=== PATIENT | male | born 1955 | race Caucasian/White ===

== ENCOUNTER 2016-07-22 16:02 | Emergency (ER) | payer OTHER ==
--- NOTE | 2016-07-22 18:00 | DIAGNOSTIC IMAGING REPORT ---
PROCEDURE: CT ABD/PELVIS WITH CONTRAST CLINICAL INDICATION: Left lower quadrant pain, Marisela see 12.7. Initial encounter. TECHNIQUE: 125 ml of Isovue 300 were injected intravenously and axial images were obtained of the entire abdomen and pelvis with sagittal and coronal reformations. COMPARISON: CT chest 01/10/2015. FINDINGS: ABDOMEN: Lung base are clear. Heart size is normal. There are several hepatic hypoenhancing lesions measuring 5 mm or less which are stable and probably benign. Gallbladder, pancreas, spleen, adrenal glands and right kidney are normal. Small left renal cyst. Mild atherosclerosis of the aorta. Scattered diverticula of the ascending, transverse and descending colon. Moderate hiatal hernia. PELVIS: Mild proximal sigmoid colon diverticulosis with 7.5 cm long segment demonstrating wall thickening and mild inflammatory changes. No abscess or free air. Normal appendix. Enlarged prostate (5.8 cm). Markedly distended bladder. Small right bladder diverticulum. Bones are unremarkable. IMPRESSION: 1. Proximal sigmoid colon diverticula was wall thickening and mild adjacent inflammatory changes consistent with diverticulitis. Neoplastic changes are less likely. Recommend follow-up. 2. Enlarged prostate with markedly distended bladder 3. Moderate hiatal hernia 4. Results discussed with Avril Fay All CT scans at this facility use dose modulation, iterative reconstruction, and/or weight-based dosing when appropriate to reduce radiation dose to as low as reasonably achievable.
--- NOTE | 2016-07-22 18:03 | ED CLINICAL REPORT ---
Clinical Report - Physicians/Mid Levels [facility] [address] [place] [address] 07/22/2016 16:02 Patient: MOMO YATES Time Seen: 16:18; initial patient contact, initial documentation, patient care assumed. Arrived- By private vehicle. Historian- patient. HISTORY OF PRESENT ILLNESS Chief Complaint: ABDOMINAL PAIN. This started about 1 weeks ago and is still present. It was abrupt in onset and has been intermittent. At its maximum, severity described as severe. When seen in the E.D., it was almost gone. Modifying factors. Not worsened by anything. Not relieved by anything. It is described as "pain" and it is described as located in the left lower quadrant. No nausea or loss of appetite. He has had vomiting (none today). He has had loose stools (x3 episodes today). No recent travel. Similar symptoms previously: None. Recent medical care: Not recently seen/assessed. REVIEW OF SYSTEMS No constipation, black stools, hematemesis, difficulty with urination or pain with urination. No urinary frequency, bloody stools, fever, chest pain or difficulty breathing. All systems otherwise negative, except as recorded above. PAST HISTORY See nurses notes. PROBLEMS: Urinary Retention. Hypertension. Immunizations. Hypospadias. --16:10 Ruchi Goodwin R.N. ADDITIONAL SURGERIES: For 2 blockages in urinary tract. --16:10 Ruchi Goodwin RJasmin. SOCIAL HISTORY Heavy tobacco smoker. Heavy alcohol use. No drug use. No recent travel. Is a local resident. FAMILY HISTORY Negative. ADDITIONAL NOTES The nursing notes have been reviewed with agreement regarding the chief complaint, HPI, ROS, PMH and patient medications and allergies. PHYSICAL EXAM Vital Signs: 07/22/2016 16:06 BP: 153/88. HR: 74. RR: 20. O2 saturation: 98%. Temp: 98.6 F. Pain level now: 7/10. Have been reviewed as normal and appear to be correct. Appearance: Alert. Oriented X3. No acute distress. Eyes: Pupils equal, round and reactive to light. Eyes normal inspection. Neck: Normal inspection. Neck supple. CVS: Normal heart rate and rhythm. Heart sounds normal. Pulses normal. Respiratory: No respiratory distress. Breath sounds normal. Chest nontender. Abdomen: Soft and nontender. Bowel sounds normal. No organomegaly. No mass. Mildly obese. Back: Normal inspection. Skin: Skin warm and dry. Normal skin color. No rash. Normal skin turgor. Extremities: Extremities exhibit normal ROM. No lower extremity edema. Neuro: Oriented X 3. No motor deficit. No sensory deficit. LABS, X-RAYS, AND EKG Abdominal CT: . IMPRESSION: 1. Proximal sigmoid colon diverticula was wall thickening and mild adjacent inflammatory changes consistent with diverticulitis. Neoplastic changes are less likely. Recommend follow-up. 2. Enlarged prostate with markedly distended bladder 3. Moderate hiatal hernia 4. Results discussed with Avril Fay All CT scans at this facility use dose modulation, iterative reconstruction, and/or weight-based dosing when appropriate to reduce radiation dose to as low as reasonably achievable. Electronically Final signed by:Adria Resendez MD 07/22/2016 5:59:53 PM. The study was interpreted by the radiologist and discussed with the radiologist. Interpretation time: 17:40. Laboratory Tests: CBC w Diff: (RENEE: 07/22/2016 16:14) ( MsgRcvd 07/22/2016 16:37) Final results Test Result Flag Units (Reference) WHITE BLOOD COUNT 12.7 H K/uL (4.5-11.5) RED BLOOD COUNT 5.26 M/uL (4.50-5.90) HEMOGLOBIN 16.2 gm/dL (13.5-17.5) HEMATOCRIT 47.5 % (41.0-53.0) MEAN CELL VOLUME 90 fL (80-100) MEAN CORPUSCULAR HGB 31 pg (26-34) MEAN CORPUSCULAR HGB CONC 34 g/dL (31-37) RED CELL DISTRIBUTION WIDTH 13.1 % (11.6-14.8) PLATELET COUNT 225 K/uL (150-400) NEUTROPHIL % 80.2 H % (50-75) LYMPH % 13.8 L % (25-40) MONO % 5.0 % (3-14) EOSINOPHIL % 0.7 % (0-4) BASOPHIL % 0.3 % (0-2) Ethyl Alcohol: (RENEE: 07/22/2016 16:14) ( [facility] 07/22/2016 17:06) Final results Test Result Flag Units (Reference) ETHYL ALCOHOL <3 L mg/dL (3-10) CMP: (RENEE: 07/22/2016 16:14) ( [facility] 07/22/2016 16:43) Final results Test Result Flag Units (Reference) GLUCOSE 99 mg/dL (70-110) BUN 9 mg/dL (7-18) CREATININE 1.0 mg/dL (0.6-1.3) Estimated GFR >60 mL/min Estimated GFR- >60 mL/min Note: Persistent reduction over 3 months in eGFR<60 mL/min/1.73 m2 defines CKD. Patients with eGFR values>=60 mL/min/1.73 m2 may also have CKD if evidence ofpersistent proteinuria. Additional information may be foundat www.kidney.org. SODIUM 137 mmol/L (136-145) POTASSIUM 4.0 mmol/L (3.5-5.1) CHLORIDE 101 mmol/L (98-107) CARBON DIOXIDE 27 mmol/L (21-32) CALCIUM 9.0 mg/dL (8.5-10.1) TOTAL PROTEIN 7.9 g/dL (6.4-8.2) ALBUMIN 3.8 g/dL (3.3-5.0) BILIRUBIN, TOTAL 0.7 mg/dL (0.0-1.0) ALKALINE PHOSPHATASE 69 U/L (46-116) AST (SGOT) 22 U/L (15-37) ALT (SGPT) 25 U/L (12-78) LIPASE 156 U/L (73-393) AMYLASE 47 U/L (25-115) . PROGRESS AND PROCEDURES Patient counseled in person regarding the patient's stable condition, test results and diagnosis. 18:01. Differential Diagnosis: I considered gastritis, gastroenteritis, peptic ulcer disease, gastroesophageal reflux disease, mesenteric lymphadenitis, diverticulitis, colon cancer, ulcerative colitis, Crohn's disease, intussusception, small bowel obstruction, adhesions, bowel ischemia, functional bowel problems, obstipation, hepatitis, pancreatitis and viral syndrome as a possible cause of abdominal pain in this patient. This is a partial list of diagnoses considered. Above considerations are based on history, physical exam, reassessment, laboratory data and other information. Differential diagnosis was discussed with patient. Disposition: Discharged home in good and improved condition (18:03). Condition: good and stable. CLINICAL IMPRESSION Acute diverticulitis of the colon. No perforation, bleeding, abscess, peritonitis or obstruction. Acute left lower quadrant abdominal pain. INSTRUCTIONS Warnings: Further evaluation is necessary in order to conduct further tests and assess the possibility of serious illness. It is very important to follow up with a physician. GENERAL WARNINGS: Return or contact your physician immediately if your condition worsens or changes unexpectedly, if not improving as expected, or if other problems arise. SPECIFICALLY, return if you develop pain in the abdomen or pelvis, fever, the inability to keep fluids down, blood in vomitus, blood in diarrhea, fainting or lightheadedness. Prescription Medications: Zofran 4 mg: Take 1 orally every six hours as needed for nausea/vomiting. Dispense ten (10). No refills. Substitution is permissible. Flagyl 500 mg: Take 1 tablet orally every 12 hours for 7 days. No refill. Substitution is permissible. Ultram 50 mg tablets: take 1-2 orally every 6 hours as needed for pain. Dispense twenty (20). No refills. Substitution is permissible. Prednisone 20 mg: take 3 orally every day for 5 days. Dispense fifteen (15). No refills. Follow-up: Follow up with your doctor in about two days even if well. Call for an appointment. Summary of care provided to patient. Understanding of the discharge instructions verbalized by patient. Follow-up with: Momo Louis MD, Family Practice, , [facility], [address] [place] [address] Follow up in about two days as needed. Call for an appointment. Summary of care provided to patient. (Electronically signed by Avril Fay A.R.N.P. 07/22/2016 20:42)
--- NOTE | 2016-07-22 18:03 | ED ORDER SUMMARY ---
..... Patient: RADHA YATES OrderSheet [facility] VisitID: [id number] [place] [address] 61y, M Registration Date/Time: 07/22/2016 ORDER SHEET Weight: 81.6 kg (stated) Allergies: No Known Drug Allergy GENERAL ORDERS: CT Abd/Pel w Cont (No) (pending) Urgent (16:07/22/2016 HBivens A.R.N.P.) (Ack 16:28 KHoerner) ([facility] CBC w Diff Urgent (16:07/22/2016 HBivens A.R.N.P.) (Ack 16:28 KHoerner) (16:34 MWinterer R.N.) CMP Urgent (16:07/22/2016 HBivens A.R.N.P.) (Ack 16:28 KHoerner) (16:34 MWinterer R.N.) UA-Culture if indicated Urgent (16:07/22/2016 HBivens A.R.N.P.) (Ack 16:28 KHoerner) (18:12 MWinterer R.N.) Amylase Urgent (16:07/22/2016 HBivens A.R.N.P.) (Ack 16:28 KHoerner) (16:34 MWinterer R.N.) Lipase Urgent (16:07/22/2016 HBivens A.R.N.P.) (Ack 16:28 KHoerner) (16:34 MWinterer R.N.) Ethyl Alcohol Urgent (16:07/22/2016 HBivens A.R.N.P.) (Ack 16:28 KHoerner) (16:34 MWinterer R.N.) MEDICATION ORDERS: IV FLUIDS: IV NS : initial bolus 1000 mL (1000 mL/hr), then none - (NOW) (16:23 07/22/2016 HBivens A.R.N.P.) (Ack 16:25 MWinterer R.N.) (16:34 MWinterer R.N.) Toradol IV 30 mg (NOW) (16:23 07/22/2016 HBivens A.R.N.P.) (Ack 16:25 MWinterer R.N.) (16:35 MWinterer R.N.) Flagyl IV 500 mg/100mL (NOW) (18:03 07/22/2016 HBivens A.R.N.P.) (Ack 18:13 MWinterer R.N.) (18:29 MWinterer R.N.) Decadron IV 8 mg (NOW) (18:03 07/22/2016 HBivens A.R.N.P.) (Ack 18:13 MWinterer R.N.) (18:29 MWinterer R.N.) ORDER SHEET NOTES: [Electronically signed by Ruchi Goodwin R.N. (19:32 07/22/2016)] [Electronically signed by Avril FayR.N.PHollis (20:42 07/22/2016)] [Electronically locked/signed by Ruchi Goodwin R.N. (19:32 07/22/2016)]
--- NOTE | 2016-07-22 18:03 | ED CLINICAL REPORT ---
Clinical Report - Physicians/Mid Levels [facility] [address] [place] [place] [address] 07/22/2016 16:02 Patient: MOMO YATES Time Seen: 16:18; initial patient contact, initial documentation, patient care assumed. Arrived- By private vehicle. Historian- patient. HISTORY OF PRESENT ILLNESS Chief Complaint: ABDOMINAL PAIN. This started about 1 weeks ago and is still present. It was abrupt in onset and has been intermittent. At its maximum, severity described as severe. When seen in the E.D., it was almost gone. Modifying factors. Not worsened by anything. Not relieved by anything. It is described as "pain" and it is described as located in the left lower quadrant. No nausea or loss of appetite. He has had vomiting (none today). He has had loose stools (x3 episodes today). No recent travel. Similar symptoms previously: None. Recent medical care: Not recently seen/assessed. REVIEW OF SYSTEMS No constipation, black stools, hematemesis, difficulty with urination or pain with urination. No urinary frequency, bloody stools, fever, chest pain or difficulty breathing. All systems otherwise negative, except as recorded above. PAST HISTORY See nurses notes. PROBLEMS: Urinary Retention. Hypertension. Immunizations. Hypospadias. --16:10 Ruchi Goodwin R.N. ADDITIONAL SURGERIES: For 2 blockages in urinary tract. --16:10 Ruchi Goodwin RJasmin. SOCIAL HISTORY Heavy tobacco smoker. Heavy alcohol use. No drug use. No recent travel. Is a local resident. FAMILY HISTORY Negative. ADDITIONAL NOTES The nursing notes have been reviewed with agreement regarding the chief complaint, HPI, ROS, PMH and patient medications and allergies. PHYSICAL EXAM Vital Signs: 07/22/2016 16:06 BP: 153/88. HR: 74. RR: 20. O2 saturation: 98%. Temp: 98.6 F. Pain level now: 7/10. Have been reviewed as normal and appear to be correct. Appearance: Alert. Oriented X3. No acute distress. Eyes: Pupils equal, round and reactive to light. Eyes normal inspection. Neck: Normal inspection. Neck supple. CVS: Normal heart rate and rhythm. Heart sounds normal. Pulses normal. Respiratory: No respiratory distress. Breath sounds normal. Chest nontender. Abdomen: Soft and nontender. Bowel sounds normal. No organomegaly. No mass. Mildly obese. Back: Normal inspection. Skin: Skin warm and dry. Normal skin color. No rash. Normal skin turgor. Extremities: Extremities exhibit normal ROM. No lower extremity edema. Neuro: Oriented X 3. No motor deficit. No sensory deficit. LABS, X-RAYS, AND EKG Abdominal CT: . IMPRESSION: 1. Proximal sigmoid colon diverticula was wall thickening and mild adjacent inflammatory changes consistent with diverticulitis. Neoplastic changes are less likely. Recommend follow-up. 2. Enlarged prostate with markedly distended bladder 3. Moderate hiatal hernia 4. Results discussed with Avril Fay All CT scans at this facility use dose modulation, iterative reconstruction, and/or weight-based dosing when appropriate to reduce radiation dose to as low as reasonably achievable. Electronically Final signed by:Adria Resendez MD 07/22/2016 5:59:53 PM. The study was interpreted by the radiologist and discussed with the radiologist. Interpretation time: 17:40. Laboratory Tests: CBC w Diff: (RENEE: 07/22/2016 16:14) ( MsgRcvd 07/22/2016 16:37) Final results Test Result Flag Units (Reference) WHITE BLOOD COUNT 12.7 H K/uL (4.5-11.5) RED BLOOD COUNT 5.26 M/uL (4.50-5.90) HEMOGLOBIN 16.2 gm/dL (13.5-17.5) HEMATOCRIT 47.5 % (41.0-53.0) MEAN CELL VOLUME 90 fL (80-100) MEAN CORPUSCULAR HGB 31 pg (26-34) MEAN CORPUSCULAR HGB CONC 34 g/dL (31-37) RED CELL DISTRIBUTION WIDTH 13.1 % (11.6-14.8) PLATELET COUNT 225 K/uL (150-400) NEUTROPHIL % 80.2 H % (50-75) LYMPH % 13.8 L % (25-40) MONO % 5.0 % (3-14) EOSINOPHIL % 0.7 % (0-4) BASOPHIL % 0.3 % (0-2) Ethyl Alcohol: (RENEE: 07/22/2016 16:14) ( [facility] 07/22/2016 17:06) Final results Test Result Flag Units (Reference) ETHYL ALCOHOL <3 L mg/dL (3-10) CMP: (RENEE: 07/22/2016 16:14) ( [facility] 07/22/2016 16:43) Final results Test Result Flag Units (Reference) GLUCOSE 99 mg/dL (70-110) BUN 9 mg/dL (7-18) CREATININE 1.0 mg/dL (0.6-1.3) Estimated GFR >60 mL/min Estimated GFR- >60 mL/min Note: Persistent reduction over 3 months in eGFR<60 mL/min/1.73 m2 defines CKD. Patients with eGFR values>=60 mL/min/1.73 m2 may also have CKD if evidence ofpersistent proteinuria. Additional information may be foundat www.kidney.org. SODIUM 137 mmol/L (136-145) POTASSIUM 4.0 mmol/L (3.5-5.1) CHLORIDE 101 mmol/L (98-107) CARBON DIOXIDE 27 mmol/L (21-32) CALCIUM 9.0 mg/dL (8.5-10.1) TOTAL PROTEIN 7.9 g/dL (6.4-8.2) ALBUMIN 3.8 g/dL (3.3-5.0) BILIRUBIN, TOTAL 0.7 mg/dL (0.0-1.0) ALKALINE PHOSPHATASE 69 U/L (46-116) AST (SGOT) 22 U/L (15-37) ALT (SGPT) 25 U/L (12-78) LIPASE 156 U/L (73-393) AMYLASE 47 U/L (25-115) . PROGRESS AND PROCEDURES Patient counseled in person regarding the patient's stable condition, test results and diagnosis. 18:01. Differential Diagnosis: I considered gastritis, gastroenteritis, peptic ulcer disease, gastroesophageal reflux disease, mesenteric lymphadenitis, diverticulitis, colon cancer, ulcerative colitis, Crohn's disease, intussusception, small bowel obstruction, adhesions, bowel ischemia, functional bowel problems, obstipation, hepatitis, pancreatitis and viral syndrome as a possible cause of abdominal pain in this patient. This is a partial list of diagnoses considered. Above considerations are based on history, physical exam, reassessment, laboratory data and other information. Differential diagnosis was discussed with patient. Disposition: Discharged home in good and improved condition (18:03). Condition: good and stable. CLINICAL IMPRESSION Acute diverticulitis of the colon. No perforation, bleeding, abscess, peritonitis or obstruction. Acute left lower quadrant abdominal pain. INSTRUCTIONS Warnings: Further evaluation is necessary in order to conduct further tests and assess the possibility of serious illness. It is very important to follow up with a physician. GENERAL WARNINGS: Return or contact your physician immediately if your condition worsens or changes unexpectedly, if not improving as expected, or if other problems arise. SPECIFICALLY, return if you develop pain in the abdomen or pelvis, fever, the inability to keep fluids down, blood in vomitus, blood in diarrhea, fainting or lightheadedness. Prescription Medications: Zofran 4 mg: Take 1 orally every six hours as needed for nausea/vomiting. Dispense ten (10). No refills. Substitution is permissible. Flagyl 500 mg: Take 1 tablet orally every 12 hours for 7 days. No refill. Substitution is permissible. Ultram 50 mg tablets: take 1-2 orally every 6 hours as needed for pain. Dispense twenty (20). No refills. Substitution is permissible. Prednisone 20 mg: take 3 orally every day for 5 days. Dispense fifteen (15). No refills. Follow-up: Follow up with your doctor in about two days even if well. Call for an appointment. Summary of care provided to patient. Understanding of the discharge instructions verbalized by patient. Follow-up with: Momo Louis MD, Family Practice, , [facility], [address] [place] [address] Follow up in about two days as needed. Call for an appointment. Summary of care provided to patient. (Electronically signed by Avril Fay A.R.N.P. 07/22/2016 20:42)
--- NOTE | 2016-07-22 18:03 | ED NURSING NOTES ---
Clinical Report - Nurses [facility] [place] [address] 07/22/2016 16:02 Patient: RADHA YATES TRIAGE Acuity: LEVEL 3. Chief Complaint: ABDOMINAL PAIN, VOMITING and DIARRHEA. Alert. No acute distress. SEPSIS SCREEN: Sepsis Screen. Negative (no infection suspected/documented). --16:12 Ruchi Goodwin R.N. 16:06 07/22/16. BP: 153/88. HR: 74. RR: 20. O2 saturation: 98% on room air. Temp: 98.6 F (oral). Pain level now: 7/10. --16:12 Ruchi Goodwin R.N. Weight: 81.6 kg stated. Height/Length: 71 inches Per Patient. BMI: 25.1. --16:11 Ruchi Goodwin R.N. Medications Lisinopril Oral. --16:09 Ruchi Goodwin R.N. Another bp med. --16:10 Ruchi Goodwin R.N. Medication/allergy information source: the patient. --16:12 Ruchi Goodwin R.N. Allergies No Known Drug Allergy. --16:09 Ruchi Goodwin R.N. History Arrived by private vehicle. Historian: patient. Accompanied by (dropped off). Primary physician (none). Onset. (1 weeks ago). Describes the quality as "pain" and sharp. Relates location as in the left lower quadrant. Notes pain level as 7/10 on arrival. He has had diarrhea. Reports last BM was yesterday. Last oral intake by patient was 3 hours ago. 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 SOCIAL HX: Current every day heavy tobacco smoker (cigarette)- 1 pack per day. Heavy alcohol use. No drug use. No recent travel. FALL RISK ASSESSMENT: Fall risk assessment completed. No fall risk identified. NUTRITIONAL RISK ASSESSMENT: The nutritional risk assessment revealed no deficiencies. FUNCTIONAL ASSESSMENT: Functional assessment: no impairments noted. LEARNING NEEDS ASSESSMENT: The learning needs assessment revealed no barriers. SKIN INTEGRITY ASSESSMENT: Skin integrity risk assessment completed. No skin integrity risk identified. --16:12 Ruchi Goodwin R.N. PROBLEMS: Urinary Retention. Hypertension. Immunizations. Hypospadias. --16:10 Ruchi Goodwin R.N. ADDITIONAL SURGERIES: For 2 blockages in urinary tract. --16:10 Ruchi Goodwin R.N. Assessment GENERAL / NEURO / PSYCH: Alert. Oriented X 4. Appears in no acute distress. [place] Coma Scale: 15- eyes open spontaneously (4); best verbal response- oriented x 4 (5); best motor response- obeys commands (6). Patient appears calm and cooperative. RESPIRATORY: Respirations not labored. CVS: Capillary refill less than 2 seconds. SKIN: Mucous membranes are pink. Skin is warm and dry. --16:12 Ruchi Goodwin R.N. Interventions ID band on patient. ABDOMINAL PAIN protocol initiated. To treatment room. --16:12 Ruchi Goodwin R.N. NURSING PROGRESS NOTES 16:12 07/22/16. Patient gowned. Two patient identifiers checked. Call light placed in reach. Side rails up x 2. Bed placed in lowest position. Brakes of bed on. Patient ready for evaluation- chart flagged. --16:12 Ruchi Goodwin R.N. 16:13 07/22/2016 Site #1 started via IV in the left forearm with an 20g angiocath, with aseptic technique and good blood return; one attempt. Blood drawn: rainbow set. Labeled in the presence of the patient and sent to the lab. Saline lock flushed with 10 mL saline. --16:13 Ruchi Goodwin R.N. 16:29 07/22/2016 Started bag #1 1000 mL IV Fluids IV NS (Saline); at 999 mL/hr over 1 hour(s) via site #1 via IV pump. Allergies verified and confirmed 5 rights. IV patency established. IV site checked: no pain, redness, or swelling. IV flushed thoroughly pre- and post-medication administration. --16:34 Ruchi Goodwin R.N. 16:35 07/22/2016 Toradol IVP 30 mg given over 1 minute(s) via site #1. Allergies verified and confirmed 5 rights. IV patency established. IV site checked: no pain, redness, or swelling. IV flushed thoroughly pre- and post-medication administration. IVP given by RN. --16:35 Ruchi Goodwin R.N. 18:13 07/22/16. Checked patient name and birthdate: patient confirmed urine collected with return of yellow-colored clear urine; sample sent to lab for urinalysis. Specimen labeled in the presence of the patient. --18: Ruchi Goodwin R.N. 18:07/22/2016 Decadron IVP 8 mg given over 3 minute(s) via site #1. Allergies verified and confirmed 5 rights. IV patency established. IV site checked: no pain, redness, or swelling. IV flushed thoroughly pre- and post-medication administration. IVP given by RN. --18: Ruchi Goodwin R.N. 18:07/22/2016 Started 500 mg of Flagyl (MetroNIDAZOLE in NaCl) IVPB in bag #1 100 mL; at 100 mL/hr over 1 hour(s) via site #1 via IV pump. Allergies verified and confirmed 5 rights. IV patency established. IV site checked: no pain, redness, or swelling. IV flushed thoroughly pre- and post-medication administration. --: Ruchi Goodwin R.N. DISPOSITION / DISCHARGE Condition at departure: improved and stable. No learning barriers present. Discharge instructions provided and reviewed with the patient. Reviewed medication(s) side effects, precautions and dosing information. Prescription(s) given to the patient. Patient verbalized understanding. Written instructions provided in Croatian. The patient was discharged by the nurse practitioner. He was discharged home and accompanied by parent. He left the Emergency Department ambulatory and via private vehicle. Parent driving. --19:24 Ruchi Goodwin R.N. 19:19 07/22/16. BP: 152/87. HR: 75. RR: 20. O2 saturation: 100%. Temp: 98.4 F (oral). Pain level now: 0/10. --19:24 Ruchi Goodwin R.N. 19:24 07/22/2016 Site #1 removed upon discharge. Catheter intact. Manual pressure and bandage applied. --19: Ruchi Goodwin R.N. Locked/Released at 07/22/2016 19:32 by Ruchi Goodwin R.N.
--- NOTE | 2016-07-22 18:03 | ED ORDER SUMMARY ---
..... Patient: RADHA YATES OrderSheet [facility] VisitID: [id number] [place] [address] 61y, M Registration Date/Time: 07/22/2016 ORDER SHEET Weight: 81.6 kg (stated) Allergies: No Known Drug Allergy GENERAL ORDERS: CT Abd/Pel w Cont (No) (pending) Urgent (16:07/22/2016 HBivens A.R.N.P.) (Ack 16:28 KHoerner) [facility] w Diff Urgent (16:07/22/2016 HBivens A.R.N.P.) (Ack 16:28 KHoerner) (16:34 MWinterer R.N.) CMP Urgent (16:07/22/2016 HBivens A.R.N.P.) (Ack 16:28 KHoerner) (16:34 MWinterer R.N.) UA-Culture if indicated Urgent (16:07/22/2016 HBivens A.R.N.P.) (Ack 16:28 KHoerner) (18:12 MWinterer R.N.) Amylase Urgent (16:07/22/2016 HBivens A.R.N.P.) (Ack 16:28 KHoerner) (16:34 MWinterer R.N.) Lipase Urgent (16:07/22/2016 HBivens A.R.N.P.) (Ack 16:28 KHoerner) (16:34 MWinterer R.N.) Ethyl Alcohol Urgent (16:07/22/2016 HBivens A.R.N.P.) (Ack 16:28 KHoerner) (16:34 MWinterer R.N.) MEDICATION ORDERS: IV FLUIDS: IV NS : initial bolus 1000 mL (1000 mL/hr), then none - (NOW) (16:23 07/22/2016 HBivens A.R.N.P.) (Ack 16:25 MWinterer R.N.) (16:34 MWinterer R.N.) Toradol IV 30 mg (NOW) (16:23 07/22/2016 HBivens A.R.N.P.) (Ack 16:25 MWinterer R.N.) (16:35 MWinterer R.N.) Flagyl IV 500 mg/100mL (NOW) (18:03 07/22/2016 HBivens A.R.N.P.) (Ack 18:13 MWinterer R.N.) (18:29 MWinterer R.N.) Decadron IV 8 mg (NOW) (18:03 07/22/2016 HBivens A.R.N.P.) (Ack 18:13 MWinterer R.N.) (18:29 MWinterer R.N.) ORDER SHEET NOTES: [Electronically signed by Ruchi Goodwin R.N. (19:32 07/22/2016)] [Electronically signed by Avril FayR.N.PHollis (20:42 07/22/2016)] [Electronically locked/signed by Ruchi Goodwin R.N. (19:32 07/22/2016)]
--- NOTE | 2016-07-22 20:43 | ED MAR SUMMARY ---
..... Medication Administration Record [facility] [address] [place] [address] Patient: RADHA YATES Visit ID: [id number] 61y, M Weight: 81.6 kg Height/Length: 71 in BMI: 25.1 ALLERGIES: No Known Drug Allergy Start 16:29 07/22/2016 Ruchi Goodwin R.N. Medication Administered: IV NS (SALINE), Dose: IV Fluids over 1 hour(s), Rate: 999 mL/hr, Dispensed: 1000 mL bag, Site: #1 left forearm. Medication Ordered: IV NS : initial bolus 1000 mL (1000 mL/hr), then none - (NOW). Given 16:35 07/22/2016 Ruchi Goodwin R.N. Medication Administered: TORADOL [IVP], Dose: 30 mg IVP over 1 minute(s), Site: #1 left forearm. Medication Ordered: Toradol IV 30 mg (NOW). Start 18:07/22/2016 Ruchi Goodwin R.N. Medication Administered: FLAGYL [IVPB] (METRONIDAZOLE IN NACL), Dose: 500 mg IVPB over 1 hour(s), Rate: 100 mL/hr, Dispensed: 100 mL bag, Site: #1 left forearm. Medication Ordered: Flagyl IV 500 mg/100mL (NOW). Given 18:29 07/22/2016 Ruchi Goodwin R.N. Medication Administered: DECADRON [IVP], Dose: 8 mg IVP over 3 minute(s), Site: #1 left forearm. Medication Ordered: Decadron IV 8 mg (NOW).
--- NOTE | 2016-07-22 20:43 | ED DISCHARGE INSTRUCTIONS ---
Patient: MOMO YATES General Instructions Formerly [facility] VisitID: [id number] [place], [place] [id number] 61y, M Registration Date/Time: 07/22/2016 Acute diverticulitis of the colon. No perforation, bleeding, abscess, peritonitis or obstruction. Acute left lower quadrant abdominal pain. INSTRUCTIONS Warnings: Further evaluation is necessary in order to conduct further tests and assess the possibility of serious illness. It is very important to follow up with a physician. GENERAL WARNINGS: Return or contact your physician immediately if your condition worsens or changes unexpectedly, if not improving as expected, or if other problems arise. SPECIFICALLY, return if you develop pain in the abdomen or pelvis, fever, the inability to keep fluids down, blood in vomitus, blood in diarrhea, fainting or lightheadedness. Prescription Medications: Zofran 4 mg: Take 1 orally every six hours as needed for nausea/vomiting. Dispense ten (10). No refills. Substitution is permissible. Flagyl 500 mg: Take 1 tablet orally every 12 hours for 7 days. No refill. Substitution is permissible. Ultram 50 mg tablets: take 1-2 orally every 6 hours as needed for pain. Dispense twenty (20). No refills. Substitution is permissible. Prednisone 20 mg: take 3 orally every day for 5 days. Dispense fifteen (15). No refills. Follow-up: Follow up with your doctor in about two days even if well. Call for an appointment. Summary of care provided to patient. Understanding of the discharge instructions verbalized by patient. Follow-up with: Momo Louis MD, Family Practice, , [facility], [address] [place] [id number] Follow up in about two days as needed. Call for an appointment. Summary of care provided to patient. ADDITIONAL INFORMATION Abdominal Pain,Uncertain Cause [Male] Based on your visit today, the exact cause of your abdominalpain is not clear. Your exam and tests do not indicate a dangerous cause at this time. However, the signs of a serious problem may take more time to appear. Although your evaluation was reassuring today, sometimes early in the course of many conditions, exam and lab tests can appear normal. Therefore, it is important for you to watch for any new symptoms or worsening of your condition. Causes It may not be obvious what caused your symptoms. Pay attention to things that do seem to make your symptoms worse or better and discuss this with your doctor when you follow up. Diagnosis The evaluation of abdominal pain in the emergency department may onlyrequire an exam by the doctor or it may include blood, urine or imaging studies, depending on many factors. Sometimes exams and tests can identify a cause but in many cases, a clear cause is not found. Further testing at follow up visits may help to suggest a clear diagnosis. Home Care Rest as much as possible until your next exam. Try to avoid any medications (unless otherwise directed by your doctor), foods, activities, or other factors that you may have contributed to your symptoms. Try to eat foods that you know that you have tolerated well in the past. Certain diets may be recommended for some conditions that cause abdominal pain. However, since the cause of your symptoms may not be clear, discuss your diet more with your primary care provider or specialist for further recommendations. Eating several small meals per day as opposed to 2 or 3 larger meals may help. Monitor closely for anything that may make your symptoms worse or better. Pay close attention to symptoms below that may indicate worsening of your condition. Follow Up and Precautions See your doctoras instructed or sooneror if your symptoms are not improving.In some cases, you may need more testing. When to Seek Medical Attention Contact your doctor or see medical attention ifany of the following occur: Pain is becoming worse You are unable to take your medications due to excessive vomiting Swelling of the abdomen Fever of 100.4F (38C) or higher, or as directed by your health care provider Blood in vomit or bowel movements (dark red or black color) Jaundice (yellow color of eyes and skin) New onset of weakness, dizziness or fainting New onset of chest, arm, back, neck or jaw pain Diverticulitis Some people develop pouches along the wall of the colon as they get older. The pouches,called diverticuli, usually cause no symptoms. If the pouches become blocked, an infection may occur known as diverticulitis. This causes lower abdominal pain and fever. If not treated, it can become a serious condition, causing an abscess to form inside the pouch. The abscess may block the instestinal tract even or rupture, spreading infection throughout the abdomen. When treatment is started early, oral antibiotics alone may be enough to cure diverticulitis. This method is tried first. However, if you do not improve or if your condition worsens while you are trying oral antibiotics, it will be necessary to admit you to the hospital for IV antibiotics. Severe cases may require surgery. Home care The following guidelines will help you care for your diverticulitis at home: During the acute illness, rest and follow a low-fiber diet: Foods to Include: flake cereal, mashed potatoes, pancakes, waffles, pasta, white bread, rice, applesauce, bananas, eggs, meat, fish, poultry, tofu, cooked vegetables. Take antibiotics exactly as directed. Do not miss any doses or stop taking the medication, even if you feel better. Monitor your temperature and report any rising temperature to your doctor. Preventing future attacks Once you have had an episode of diverticulitis, you are at risk of having a recurrence. After you have recovered from this episode, you may be able to reduce your risk by eating a high-fiber diet (2035 gm/day of fiber). This cleans out the colon pouches that already exist and prevent new ones from forming. Foods high in fiber includes fresh fruits and edible peelings, raw or lightly cooked vegetables, whole grain cereals and breads, dried beans and peas, bran. Follow-up care Follow up with your doctor as advised or sooner if you are not improving in the nexttwo days. When to seek medical care Get prompt medical attention if any of the following occur: Fever of 100.4F (38C) or higher, or as directed by your health care provider Repeated vomiting or swelling of the abdomen Weakness, dizziness, light-headedness Increasing abdominal pain that becomes severe or spreads to your back Pain that moves to the right lower abdomen Rectal bleeding (red, black or maroon color of the stools) Unexpected vaginal bleeding Ondansetron Oral disintegrating tablet What is this medicine? ONDANSETRON (on EVANGELIST se uriah) is used to treat nausea and vomiting caused by chemotherapy. It is also used to prevent or treat nausea and vomiting after surgery. How should I use this medicine? These tablets are made to dissolve in the mouth. Do not try to push the tablet through the foil backing. With dry hands, peel away the foil backing and gently remove the tablet. Place the tablet in the mouth and allow it to dissolve, then swallow. While you may take these tablets with water, it is not necessary to do so. Talk to your a/c tech regarding the use of this medicine in children. Special care may be needed. What side effects may I notice from receiving this medicine? Side effects that you should report to your doctor or health patient care assistant as soon as possible: allergic reactions like skin rash, itching or hives, swelling of the face, lips, or tongue breathing problems dizziness fast or irregular heartbeat feeling faint or lightheaded, falls fever and chills swelling of the hands and feet tightness in the chest Side effects that usually do not require medical attention (report to your doctor or health patient care assistant if they continue or are bothersome): constipation or diarrhea headache What may interact with this medicine? Do not take this medicine with any of the following medications: -apomorphine -cisapride -dofetilide -dronedarone -pimozide -thioridazine -ziprasidone This medicine may also interact with the following medications: -carbamazepine -phenytoin -rifampicin -tramadol -other medicines that prolong the QT interval (cause an abnormal heart rhythm) What if I miss a dose? If you miss a dose, take it as soon as you can. If it is almost time for your next dose, take only that dose. Do not take double or extra doses. Where should I keep my medicine? Keep out of the reach of children. Store between 2 and 30 degrees C (36 and 86 degrees F). Throw away any unused medicine after the expiration date. What should I tell my health care provider before I take this medicine? They need to know if you have any of these conditions: heart disease history of irregular heartbeat liver disease low levels of magnesium or potassium in the blood an unusual or allergic reaction to ondansetron, granisetron, other medicines, foods, dyes, or preservatives or trying to get breast-feeding What should I watch for while using this medicine? Check with your doctor or health patient care assistant as soon as you can if you have any sign of an allergic reaction. Metronidazole Oral tablet What is this medicine? METRONIDAZOLE (me troe NI da zole) is an antiinfective. It is used to treat certain kinds of bacterial and protozoal infections. It will not work for colds, flu, or other viral infections. How should I use this medicine? Take this medicine by mouth with a full glass of water. Follow the directions on the prescription label. Take your medicine at regular intervals. Do not take your medicine more often than directed. Take all of your medicine as directed even if you think you are better. Do not skip doses or stop your medicine early. Talk to your a/c tech regarding the use of this medicine in children. Special care may be needed. What side effects may I notice from receiving this medicine? Side effects that you should report to your doctor or health patient care assistant as soon as possible: allergic reactions like skin rash or hives, swelling of the face, lips, or tongue confusion, clumsiness difficulty speaking discolored or sore mouth dizziness fever, infection numbness, tingling, pain or weakness in the hands or feet trouble passing urine or change in the amount of urine redness, blistering, peeling or loosening of the skin, including inside the mouth seizures unusually weak or tired vaginal irritation, dryness, or discharge Side effects that usually do not require medical attention (report to your doctor or health patient care assistant if they continue or are bothersome): diarrhea headache irritability metallic taste nausea stomach pain or cramps trouble sleeping What may interact with this medicine? Do not take this medicine with any of the following medications: alcohol or any product that contains alcohol amprenavir oral solution cisapride disulfiram dofetilide dronedarone paclitaxel injection pimozide ritonavir oral solution sertraline oral solution sulfamethoxazole-trimethoprim injection thioridazine ziprasidone This medicine may also interact with the following medications: cimetidine lithium other medicines that prolong the QT interval (cause an abnormal heart rhythm) phenobarbital phenytoin warfarin What if I miss a dose? If you miss a dose, take it as soon as you can. If it is almost time for your next dose, take only that dose. Do not take double or extra doses. Where should I keep my medicine? Keep out of the reach of children. Store at room temperature below 25 degrees C (77 degrees F). Protect from light. Keep container tightly closed. Throw away any unused medicine after the expiration date. What should I tell my health care provider before I take this medicine? They need to know if you have any of these conditions: anemia or other blood disorders disease of the nervous system fungal or yeast infection if you drink alcohol containing drinks liver disease seizures an unusual or allergic reaction to metronidazole, or other medicines, foods, dyes, or preservatives or trying to get breast-feeding What should I watch for while using this medicine? Tell your doctor or health patient care assistant if your symptoms do not improve or if they get worse. You may get drowsy or dizzy. Do not drive, use machinery, or do anything that needs mental alertness until you know how this medicine affects you. Do not stand or sit up quickly, especially if you are an older patient. This reduces the risk of dizzy or fainting spells. Avoid alcoholic drinks while you are taking this medicine and for three days afterward. Alcohol may make you feel dizzy, sick, or flushed. If you are being treated for a sexually transmitted disease, avoid sexual contact until you have finished your treatment. Your sexual partner may also need treatment. Tramadol Hydrochloride Oral tablet What is this medicine? TRAMADOL (TRA ma dole) is a pain reliever. It is used to treat moderate to severe pain in adults. How should I use this medicine? Take this medicine by mouth with a full glass of water. Follow the directions on the prescription label. If the medicine upsets your stomach, take it with food or milk. Do not take more medicine than you are told to take. Talk to your a/c tech regarding the use of this medicine in children. Special care may be needed. What side effects may I notice from receiving this medicine? Side effects that you should report to your doctor or health patient care assistant as soon as possible: allergic reactions like skin rash, itching or hives, swelling of the face, lips, or tongue breathing difficulties, wheezing confusion itching light headedness or fainting spells redness, blistering, peeling or loosening of the skin, including inside the mouth seizures Side effects that usually do not require medical attention (report to your doctor or health patient care assistant if they continue or are bothersome): constipation dizziness drowsiness headache nausea, vomiting What may interact with this medicine? Do not take this medicine with any of the following medications: MAOIs like Carbex, Eldepryl, Marplan, Nardil, and Parnate This medicine may also interact with the following medications: alcohol or medicines that contain alcohol antihistamines benzodiazepines bupropion carbamazepine or oxcarbazepine clozapine cyclobenzaprine digoxin furazolidone linezolid medicines for depression, anxiety, or psychotic disturbances medicines for migraine headache like almotriptan, eletriptan, frovatriptan, naratriptan, rizatriptan, sumatriptan, zolmitriptan medicines for pain like pentazocine, buprenorphine, butorphanol, meperidine, nalbuphine, and propoxyphene medicines for sleep muscle relaxants naltrexone phenobarbital phenothiazines like perphenazine, thioridazine, chlorpromazine, mesoridazine, fluphenazine, prochlorperazine, promazine, and trifluoperazine procarbazine warfarin What if I miss a dose? If you miss a dose, take it as soon as you can. If it is almost time for your next dose, take only that dose. Do not take double or extra doses. Where should I keep my medicine? Keep out of the reach of children. Store at room temperature between 15 and 30 degrees C (59 and 86 degrees F). Keep container tightly closed. Throw away any unused medicine after the expiration date. What should I tell my health care provider before I take this medicine? They need to know if you have any of these conditions: brain tumor depression drug abuse or addiction head injury if you frequently drink alcohol containing drinks kidney disease or trouble passing urine liver disease lung disease, asthma, or breathing problems seizures or epilepsy suicidal thoughts, plans, or attempt; a previous suicide attempt by you or a family member an unusual or allergic reaction to tramadol, codeine, other medicines, foods, dyes, or preservatives or trying to get breast-feeding What should I watch for while using this medicine? Tell your doctor or health patient care assistant if your pain does not go away, if it gets worse, or if you have new or a different type of pain. You may develop tolerance to the medicine. Tolerance means that you will need a higher dose of the medicine for pain relief. Tolerance is normal and is expected if you take this medicine for a long time. Do not suddenly stop taking your medicine because you may develop a severe reaction. Your body becomes used to the medicine. This does NOT mean you are addicted. Addiction is a behavior related to getting and using a drug for a non-medical reason. If you have pain, you have a medical reason to take pain medicine. Your doctor will tell you how much medicine to take. If your doctor wants you to stop the medicine, the dose will be slowly lowered over time to avoid any side effects. You may get drowsy or dizzy. Do not drive, use machinery, or do anything that needs mental alertness until you know how this medicine affects you. Do not stand or sit up quickly, especially if you are an older patient. This reduces the risk of dizzy or fainting spells. Alcohol can increase or decrease the effects of this medicine. Avoid alcoholic drinks. You may have constipation. Try to have a bowel movement at least every 2 to 3 days. If you do not have a bowel movement for 3 days, call your doctor or health patient care assistant. Your mouth may get dry. Chewing sugarless gum or sucking hard candy, and drinking plenty of water may help. Contact your doctor if the problem does not go away or is severe. Prednisone Oral tablet What is this medicine? PREDNISONE (PRED ni sone) is a corticosteroid. It is commonly used to treat inflammation of the skin, joints, lungs, and other organs. Common conditions treated include asthma, allergies, and arthritis. It is also used for other conditions, such as blood disorders and diseases of the adrenal glands. How should I use this medicine? Take this medicine by mouth with a glass of water. Follow the directions on the prescription label. Take this medicine with food. If you are taking this medicine once a day, take it in the morning. Do not take more medicine than you are told to take. Do not suddenly stop taking your medicine because you may develop a severe reaction. Your doctor will tell you how much medicine to take. If your doctor wants you to stop the medicine, the dose may be slowly lowered over time to avoid any side effects. Talk to your a/c tech regarding the use of this medicine in children. Special care may be needed. What side effects may I notice from receiving this medicine? Side effects that you should report to your doctor or health patient care assistant as soon as possible: allergic reactions like skin rash, itching or hives, swelling of the face, lips, or tongue changes in emotions or moods changes in vision depressed mood eye pain fever or chills, cough, sore throat, pain or difficulty passing urine increased thirst swelling of ankles, feet Side effects that usually do not require medical attention (report to your doctor or health patient care assistant if they continue or are bothersome): confusion, excitement, restlessness headache nausea, vomiting skin problems, acne, thin and shiny skin trouble sleeping weight gain What may interact with this medicine? Do not take this medicine with any of the following medications: metyrapone mifepristone This medicine may also interact with the following medications: aminoglutethimide amphotericin B aspirin and aspirin-like medicines barbiturates certain medicines for diabetes, like glipizide or glyburide cholestyramine cholinesterase inhibitors cyclosporine digoxin diuretics ephedrine female hormones, like estrogens and control pills isoniazid ketoconazole NSAIDS, medicines for pain and inflammation, like ibuprofen or naproxen phenytoin rifampin toxoids vaccines warfarin What if I miss a dose? If you miss a dose, take it as soon as you can. If it is almost time for your next dose, talk to your doctor or health patient care assistant. You may need to miss a dose or take an extra dose. Do not take double or extra doses without advice. Where should I keep my medicine? Keep out of the reach of children. Store at room temperature between 15 and 30 degrees C (59 and 86 degrees F). Protect from light. Keep container tightly closed. Throw away any unused medicine after the expiration date. What should I tell my health care provider before I take this medicine? They need to know if you have any of these conditions: Olya's syndrome diabetes glaucoma heart disease high blood pressure infection (especially a virus infection such as chickenpox, cold sores, or herpes) kidney disease liver disease mental illness myasthenia gravis osteoporosis seizures stomach or intestine problems thyroid disease an unusual or allergic reaction to lactose, prednisone, other medicines, foods, dyes, or preservatives or trying to get breast-feeding What should I watch for while using this medicine? Visit your doctor or health patient care assistant for regular checks on your progress. If you are taking this medicine over a prolonged period, carry an identification card with your name and address, the type and dose of your medicine, and your doctor's name and address. This medicine may increase your risk of getting an infection. Tell your doctor or health patient care assistant if you are around anyone with measles or chickenpox, or if you develop sores or blisters that do not heal properly. If you are going to have surgery, tell your doctor or health patient care assistant that you have taken this medicine within the last twelve months. Ask your doctor or health patient care assistant about your diet. You may need to lower the amount of salt you eat. This medicine may affect blood sugar levels. If you have diabetes, check with your doctor or health patient care assistant before you change your diet or the dose of your diabetic medicine. You have been given the following additional information: Abdominal Pain, Unknown Cause, (Male) Diverticulitis Ondansetron Oral disintegrating tablet Metronidazole Oral tablet Tramadol Hydrochloride Oral tablet Prednisone Oral tablet (Electronically signed by Avril Fay A.R.N.P. 07/22/2016 20:42)
--- NOTE | 2016-07-22 20:43 | ED MED RECONCILIATION SUMMARY ---
Patient: RADHA YATES Medication Reconciliation Report [facility] VisitID: [id number] [place] [address] 61y, M Registration Date/Time: 07/22/2016 Weight: 81.6 kg Height/Length: 71 in. BMI: 25.1 ALLERGIES: No Known Drug Allergy The patient's Home Medications are listed below: THE FOLLOWING MEDICATIONS NEED TO BE RECONCILED: Another bp med Lisinopril Oral The source(s) of the original Home Medication information: patient The following Medications were given to the patient in the Emergency Department: IV NS IV Fluids bolus 0, then 999 mL/hr, administered: 07/22/2016 4:29:00 PM Toradol [IVP] IVP 30 mg, administered: 07/22/2016 4:35:00 PM Decadron [IVP] IVP 8 mg, administered: 07/22/2016 6:29:00 PM Flagyl [IVPB] IVPB bolus 0, then 500 mg 100 mL/hr, administered: 07/22/2016 6:29:00 PM The following Medications were prescribed to the patient: Zofran 4 mg: Take 1 orally every six hours as needed for nausea/vomiting. Dispense ten (10). No refills. Substitution is permissible. -- Avril Fay A.R.N.P. Flagyl 500 mg: Take 1 tablet orally every 12 hours for 7 days. No refill. Substitution is permissible. -- Avril Fay A.R.N.P. Ultram 50 mg tablets: take 1-2 orally every 6 hours as needed for pain. Dispense twenty (20). No refills. Substitution is permissible. -- Avril Fay A.R.N.P. Prednisone 20 mg: take 3 orally every day for 5 days. Dispense fifteen (15). No refills. -- Avril Fay A.R.N.P.
--- NOTE | 2016-07-22 20:43 | ED MAR SUMMARY ---
..... Medication Administration Record [facility] [address] [place] [address] Patient: RADHA YATES Visit ID: [id number] 61y, M Weight: 81.6 kg Height/Length: 71 in BMI: 25.1 ALLERGIES: No Known Drug Allergy Start 16:29 07/22/2016 Ruchi Goodwin R.N. Medication Administered: IV NS (SALINE), Dose: IV Fluids over 1 hour(s), Rate: 999 mL/hr, Dispensed: 1000 mL bag, Site: #1 left forearm. Medication Ordered: IV NS : initial bolus 1000 mL (1000 mL/hr), then none - (NOW). Given 16:35 07/22/2016 Ruchi Goodwin R.N. Medication Administered: TORADOL [IVP], Dose: 30 mg IVP over 1 minute(s), Site: #1 left forearm. Medication Ordered: Toradol IV 30 mg (NOW). Start 18:07/22/2016 Ruchi Goodwin R.N. Medication Administered: FLAGYL [IVPB] (METRONIDAZOLE IN NACL), Dose: 500 mg IVPB over 1 hour(s), Rate: 100 mL/hr, Dispensed: 100 mL bag, Site: #1 left forearm. Medication Ordered: Flagyl IV 500 mg/100mL (NOW). Given 18:29 07/22/2016 Ruchi Goodwin R.N. Medication Administered: DECADRON [IVP], Dose: 8 mg IVP over 3 minute(s), Site: #1 left forearm. Medication Ordered: Decadron IV 8 mg (NOW).
--- NOTE | 2016-07-22 20:43 | ED DISCHARGE INSTRUCTIONS ---
Patient: MOMO YATES General Instructions [facility] VisitID: [id number] [place], [place] [id number] 61y, M Registration Date/Time: 07/22/2016 Acute diverticulitis of the colon. No perforation, bleeding, abscess, peritonitis or obstruction. Acute left lower quadrant abdominal pain. INSTRUCTIONS Warnings: Further evaluation is necessary in order to conduct further tests and assess the possibility of serious illness. It is very important to follow up with a physician. GENERAL WARNINGS: Return or contact your physician immediately if your condition worsens or changes unexpectedly, if not improving as expected, or if other problems arise. SPECIFICALLY, return if you develop pain in the abdomen or pelvis, fever, the inability to keep fluids down, blood in vomitus, blood in diarrhea, fainting or lightheadedness. Prescription Medications: Zofran 4 mg: Take 1 orally every six hours as needed for nausea/vomiting. Dispense ten (10). No refills. Substitution is permissible. Flagyl 500 mg: Take 1 tablet orally every 12 hours for 7 days. No refill. Substitution is permissible. Ultram 50 mg tablets: take 1-2 orally every 6 hours as needed for pain. Dispense twenty (20). No refills. Substitution is permissible. Prednisone 20 mg: take 3 orally every day for 5 days. Dispense fifteen (15). No refills. Follow-up: Follow up with your doctor in about two days even if well. Call for an appointment. Summary of care provided to patient. Understanding of the discharge instructions verbalized by patient. Follow-up with: Momo Louis MD, Family Practice, , [facility], [address] [place] [id number] Follow up in about two days as needed. Call for an appointment. Summary of care provided to patient. ADDITIONAL INFORMATION Abdominal Pain,Uncertain Cause [Male] Based on your visit today, the exact cause of your abdominalpain is not clear. Your exam and tests do not indicate a dangerous cause at this time. However, the signs of a serious problem may take more time to appear. Although your evaluation was reassuring today, sometimes early in the course of many conditions, exam and lab tests can appear normal. Therefore, it is important for you to watch for any new symptoms or worsening of your condition. Causes It may not be obvious what caused your symptoms. Pay attention to things that do seem to make your symptoms worse or better and discuss this with your doctor when you follow up. Diagnosis The evaluation of abdominal pain in the emergency department may onlyrequire an exam by the doctor or it may include blood, urine or imaging studies, depending on many factors. Sometimes exams and tests can identify a cause but in many cases, a clear cause is not found. Further testing at follow up visits may help to suggest a clear diagnosis. Home Care Rest as much as possible until your next exam. Try to avoid any medications (unless otherwise directed by your doctor), foods, activities, or other factors that you may have contributed to your symptoms. Try to eat foods that you know that you have tolerated well in the past. Certain diets may be recommended for some conditions that cause abdominal pain. However, since the cause of your symptoms may not be clear, discuss your diet more with your primary care provider or specialist for further recommendations. Eating several small meals per day as opposed to 2 or 3 larger meals may help. Monitor closely for anything that may make your symptoms worse or better. Pay close attention to symptoms below that may indicate worsening of your condition. Follow Up and Precautions See your doctoras instructed or sooneror if your symptoms are not improving.In some cases, you may need more testing. When to Seek Medical Attention Contact your doctor or see medical attention ifany of the following occur: Pain is becoming worse You are unable to take your medications due to excessive vomiting Swelling of the abdomen Fever of 100.4F (38C) or higher, or as directed by your health care provider Blood in vomit or bowel movements (dark red or black color) Jaundice (yellow color of eyes and skin) New onset of weakness, dizziness or fainting New onset of chest, arm, back, neck or jaw pain Diverticulitis Some people develop pouches along the wall of the colon as they get older. The pouches,called diverticuli, usually cause no symptoms. If the pouches become blocked, an infection may occur known as diverticulitis. This causes lower abdominal pain and fever. If not treated, it can become a serious condition, causing an abscess to form inside the pouch. The abscess may block the instestinal tract even or rupture, spreading infection throughout the abdomen. When treatment is started early, oral antibiotics alone may be enough to cure diverticulitis. This method is tried first. However, if you do not improve or if your condition worsens while you are trying oral antibiotics, it will be necessary to admit you to the hospital for IV antibiotics. Severe cases may require surgery. Home care The following guidelines will help you care for your diverticulitis at home: During the acute illness, rest and follow a low-fiber diet: Foods to Include: flake cereal, mashed potatoes, pancakes, waffles, pasta, white bread, rice, applesauce, bananas, eggs, meat, fish, poultry, tofu, cooked vegetables. Take antibiotics exactly as directed. Do not miss any doses or stop taking the medication, even if you feel better. Monitor your temperature and report any rising temperature to your doctor. Preventing future attacks Once you have had an episode of diverticulitis, you are at risk of having a recurrence. After you have recovered from this episode, you may be able to reduce your risk by eating a high-fiber diet (2035 gm/day of fiber). This cleans out the colon pouches that already exist and prevent new ones from forming. Foods high in fiber includes fresh fruits and edible peelings, raw or lightly cooked vegetables, whole grain cereals and breads, dried beans and peas, bran. Follow-up care Follow up with your doctor as advised or sooner if you are not improving in the nexttwo days. When to seek medical care Get prompt medical attention if any of the following occur: Fever of 100.4F (38C) or higher, or as directed by your health care provider Repeated vomiting or swelling of the abdomen Weakness, dizziness, light-headedness Increasing abdominal pain that becomes severe or spreads to your back Pain that moves to the right lower abdomen Rectal bleeding (red, black or maroon color of the stools) Unexpected vaginal bleeding Ondansetron Oral disintegrating tablet What is this medicine? ONDANSETRON (on EVANGELIST se uriah) is used to treat nausea and vomiting caused by chemotherapy. It is also used to prevent or treat nausea and vomiting after surgery. How should I use this medicine? These tablets are made to dissolve in the mouth. Do not try to push the tablet through the foil backing. With dry hands, peel away the foil backing and gently remove the tablet. Place the tablet in the mouth and allow it to dissolve, then swallow. While you may take these tablets with water, it is not necessary to do so. Talk to your battery stacker regarding the use of this medicine in children. Special care may be needed. What side effects may I notice from receiving this medicine? Side effects that you should report to your doctor or health critical care nurse practitioner as soon as possible: allergic reactions like skin rash, itching or hives, swelling of the face, lips, or tongue breathing problems dizziness fast or irregular heartbeat feeling faint or lightheaded, falls fever and chills swelling of the hands and feet tightness in the chest Side effects that usually do not require medical attention (report to your doctor or health critical care nurse practitioner if they continue or are bothersome): constipation or diarrhea headache What may interact with this medicine? Do not take this medicine with any of the following medications: -apomorphine -cisapride -dofetilide -dronedarone -pimozide -thioridazine -ziprasidone This medicine may also interact with the following medications: -carbamazepine -phenytoin -rifampicin -tramadol -other medicines that prolong the QT interval (cause an abnormal heart rhythm) What if I miss a dose? If you miss a dose, take it as soon as you can. If it is almost time for your next dose, take only that dose. Do not take double or extra doses. Where should I keep my medicine? Keep out of the reach of children. Store between 2 and 30 degrees C (36 and 86 degrees F). Throw away any unused medicine after the expiration date. What should I tell my health care provider before I take this medicine? They need to know if you have any of these conditions: heart disease history of irregular heartbeat liver disease low levels of magnesium or potassium in the blood an unusual or allergic reaction to ondansetron, granisetron, other medicines, foods, dyes, or preservatives or trying to get breast-feeding What should I watch for while using this medicine? Check with your doctor or health critical care nurse practitioner as soon as you can if you have any sign of an allergic reaction. Metronidazole Oral tablet What is this medicine? METRONIDAZOLE (me troe NI da zole) is an antiinfective. It is used to treat certain kinds of bacterial and protozoal infections. It will not work for colds, flu, or other viral infections. How should I use this medicine? Take this medicine by mouth with a full glass of water. Follow the directions on the prescription label. Take your medicine at regular intervals. Do not take your medicine more often than directed. Take all of your medicine as directed even if you think you are better. Do not skip doses or stop your medicine early. Talk to your battery stacker regarding the use of this medicine in children. Special care may be needed. What side effects may I notice from receiving this medicine? Side effects that you should report to your doctor or health critical care nurse practitioner as soon as possible: allergic reactions like skin rash or hives, swelling of the face, lips, or tongue confusion, clumsiness difficulty speaking discolored or sore mouth dizziness fever, infection numbness, tingling, pain or weakness in the hands or feet trouble passing urine or change in the amount of urine redness, blistering, peeling or loosening of the skin, including inside the mouth seizures unusually weak or tired vaginal irritation, dryness, or discharge Side effects that usually do not require medical attention (report to your doctor or health critical care nurse practitioner if they continue or are bothersome): diarrhea headache irritability metallic taste nausea stomach pain or cramps trouble sleeping What may interact with this medicine? Do not take this medicine with any of the following medications: alcohol or any product that contains alcohol amprenavir oral solution cisapride disulfiram dofetilide dronedarone paclitaxel injection pimozide ritonavir oral solution sertraline oral solution sulfamethoxazole-trimethoprim injection thioridazine ziprasidone This medicine may also interact with the following medications: cimetidine lithium other medicines that prolong the QT interval (cause an abnormal heart rhythm) phenobarbital phenytoin warfarin What if I miss a dose? If you miss a dose, take it as soon as you can. If it is almost time for your next dose, take only that dose. Do not take double or extra doses. Where should I keep my medicine? Keep out of the reach of children. Store at room temperature below 25 degrees C (77 degrees F). Protect from light. Keep container tightly closed. Throw away any unused medicine after the expiration date. What should I tell my health care provider before I take this medicine? They need to know if you have any of these conditions: anemia or other blood disorders disease of the nervous system fungal or yeast infection if you drink alcohol containing drinks liver disease seizures an unusual or allergic reaction to metronidazole, or other medicines, foods, dyes, or preservatives or trying to get breast-feeding What should I watch for while using this medicine? Tell your doctor or health critical care nurse practitioner if your symptoms do not improve or if they get worse. You may get drowsy or dizzy. Do not drive, use machinery, or do anything that needs mental alertness until you know how this medicine affects you. Do not stand or sit up quickly, especially if you are an older patient. This reduces the risk of dizzy or fainting spells. Avoid alcoholic drinks while you are taking this medicine and for three days afterward. Alcohol may make you feel dizzy, sick, or flushed. If you are being treated for a sexually transmitted disease, avoid sexual contact until you have finished your treatment. Your sexual partner may also need treatment. Tramadol Hydrochloride Oral tablet What is this medicine? TRAMADOL (TRA ma dole) is a pain reliever. It is used to treat moderate to severe pain in adults. How should I use this medicine? Take this medicine by mouth with a full glass of water. Follow the directions on the prescription label. If the medicine upsets your stomach, take it with food or milk. Do not take more medicine than you are told to take. Talk to your battery stacker regarding the use of this medicine in children. Special care may be needed. What side effects may I notice from receiving this medicine? Side effects that you should report to your doctor or health critical care nurse practitioner as soon as possible: allergic reactions like skin rash, itching or hives, swelling of the face, lips, or tongue breathing difficulties, wheezing confusion itching light headedness or fainting spells redness, blistering, peeling or loosening of the skin, including inside the mouth seizures Side effects that usually do not require medical attention (report to your doctor or health critical care nurse practitioner if they continue or are bothersome): constipation dizziness drowsiness headache nausea, vomiting What may interact with this medicine? Do not take this medicine with any of the following medications: MAOIs like Carbex, Eldepryl, Marplan, Nardil, and Parnate This medicine may also interact with the following medications: alcohol or medicines that contain alcohol antihistamines benzodiazepines bupropion carbamazepine or oxcarbazepine clozapine cyclobenzaprine digoxin furazolidone linezolid medicines for depression, anxiety, or psychotic disturbances medicines for migraine headache like almotriptan, eletriptan, frovatriptan, naratriptan, rizatriptan, sumatriptan, zolmitriptan medicines for pain like pentazocine, buprenorphine, butorphanol, meperidine, nalbuphine, and propoxyphene medicines for sleep muscle relaxants naltrexone phenobarbital phenothiazines like perphenazine, thioridazine, chlorpromazine, mesoridazine, fluphenazine, prochlorperazine, promazine, and trifluoperazine procarbazine warfarin What if I miss a dose? If you miss a dose, take it as soon as you can. If it is almost time for your next dose, take only that dose. Do not take double or extra doses. Where should I keep my medicine? Keep out of the reach of children. Store at room temperature between 15 and 30 degrees C (59 and 86 degrees F). Keep container tightly closed. Throw away any unused medicine after the expiration date. What should I tell my health care provider before I take this medicine? They need to know if you have any of these conditions: brain tumor depression drug abuse or addiction head injury if you frequently drink alcohol containing drinks kidney disease or trouble passing urine liver disease lung disease, asthma, or breathing problems seizures or epilepsy suicidal thoughts, plans, or attempt; a previous suicide attempt by you or a family member an unusual or allergic reaction to tramadol, codeine, other medicines, foods, dyes, or preservatives or trying to get breast-feeding What should I watch for while using this medicine? Tell your doctor or health critical care nurse practitioner if your pain does not go away, if it gets worse, or if you have new or a different type of pain. You may develop tolerance to the medicine. Tolerance means that you will need a higher dose of the medicine for pain relief. Tolerance is normal and is expected if you take this medicine for a long time. Do not suddenly stop taking your medicine because you may develop a severe reaction. Your body becomes used to the medicine. This does NOT mean you are addicted. Addiction is a behavior related to getting and using a drug for a non-medical reason. If you have pain, you have a medical reason to take pain medicine. Your doctor will tell you how much medicine to take. If your doctor wants you to stop the medicine, the dose will be slowly lowered over time to avoid any side effects. You may get drowsy or dizzy. Do not drive, use machinery, or do anything that needs mental alertness until you know how this medicine affects you. Do not stand or sit up quickly, especially if you are an older patient. This reduces the risk of dizzy or fainting spells. Alcohol can increase or decrease the effects of this medicine. Avoid alcoholic drinks. You may have constipation. Try to have a bowel movement at least every 2 to 3 days. If you do not have a bowel movement for 3 days, call your doctor or health critical care nurse practitioner. Your mouth may get dry. Chewing sugarless gum or sucking hard candy, and drinking plenty of water may help. Contact your doctor if the problem does not go away or is severe. Prednisone Oral tablet What is this medicine? PREDNISONE (PRED ni sone) is a corticosteroid. It is commonly used to treat inflammation of the skin, joints, lungs, and other organs. Common conditions treated include asthma, allergies, and arthritis. It is also used for other conditions, such as blood disorders and diseases of the adrenal glands. How should I use this medicine? Take this medicine by mouth with a glass of water. Follow the directions on the prescription label. Take this medicine with food. If you are taking this medicine once a day, take it in the morning. Do not take more medicine than you are told to take. Do not suddenly stop taking your medicine because you may develop a severe reaction. Your doctor will tell you how much medicine to take. If your doctor wants you to stop the medicine, the dose may be slowly lowered over time to avoid any side effects. Talk to your battery stacker regarding the use of this medicine in children. Special care may be needed. What side effects may I notice from receiving this medicine? Side effects that you should report to your doctor or health critical care nurse practitioner as soon as possible: allergic reactions like skin rash, itching or hives, swelling of the face, lips, or tongue changes in emotions or moods changes in vision depressed mood eye pain fever or chills, cough, sore throat, pain or difficulty passing urine increased thirst swelling of ankles, feet Side effects that usually do not require medical attention (report to your doctor or health critical care nurse practitioner if they continue or are bothersome): confusion, excitement, restlessness headache nausea, vomiting skin problems, acne, thin and shiny skin trouble sleeping weight gain What may interact with this medicine? Do not take this medicine with any of the following medications: metyrapone mifepristone This medicine may also interact with the following medications: aminoglutethimide amphotericin B aspirin and aspirin-like medicines barbiturates certain medicines for diabetes, like glipizide or glyburide cholestyramine cholinesterase inhibitors cyclosporine digoxin diuretics ephedrine female hormones, like estrogens and control pills isoniazid ketoconazole NSAIDS, medicines for pain and inflammation, like ibuprofen or naproxen phenytoin rifampin toxoids vaccines warfarin What if I miss a dose? If you miss a dose, take it as soon as you can. If it is almost time for your next dose, talk to your doctor or health critical care nurse practitioner. You may need to miss a dose or take an extra dose. Do not take double or extra doses without advice. Where should I keep my medicine? Keep out of the reach of children. Store at room temperature between 15 and 30 degrees C (59 and 86 degrees F). Protect from light. Keep container tightly closed. Throw away any unused medicine after the expiration date. What should I tell my health care provider before I take this medicine? They need to know if you have any of these conditions: Olya's syndrome diabetes glaucoma heart disease high blood pressure infection (especially a virus infection such as chickenpox, cold sores, or herpes) kidney disease liver disease mental illness myasthenia gravis osteoporosis seizures stomach or intestine problems thyroid disease an unusual or allergic reaction to lactose, prednisone, other medicines, foods, dyes, or preservatives or trying to get breast-feeding What should I watch for while using this medicine? Visit your doctor or health critical care nurse practitioner for regular checks on your progress. If you are taking this medicine over a prolonged period, carry an identification card with your name and address, the type and dose of your medicine, and your doctor's name and address. This medicine may increase your risk of getting an infection. Tell your doctor or health critical care nurse practitioner if you are around anyone with measles or chickenpox, or if you develop sores or blisters that do not heal properly. If you are going to have surgery, tell your doctor or health critical care nurse practitioner that you have taken this medicine within the last twelve months. Ask your doctor or health critical care nurse practitioner about your diet. You may need to lower the amount of salt you eat. This medicine may affect blood sugar levels. If you have diabetes, check with your doctor or health critical care nurse practitioner before you change your diet or the dose of your diabetic medicine. You have been given the following additional information: Abdominal Pain, Unknown Cause, (Male) Diverticulitis Ondansetron Oral disintegrating tablet Metronidazole Oral tablet Tramadol Hydrochloride Oral tablet Prednisone Oral tablet (Electronically signed by Avril Fay A.R.N.P. 07/22/2016 20:42)
--- NOTE | 2016-07-22 20:43 | ED MED RECONCILIATION SUMMARY ---
Patient: RADHA YATES Medication Reconciliation Report [facility] VisitID: [id number] [place] [address] 61y, M Registration Date/Time: 07/22/2016 Weight: 81.6 kg Height/Length: 71 in. BMI: 25.1 ALLERGIES: No Known Drug Allergy The patient's Home Medications are listed below: THE FOLLOWING MEDICATIONS NEED TO BE RECONCILED: Another bp med Lisinopril Oral The source(s) of the original Home Medication information: patient The following Medications were given to the patient in the Emergency Department: IV NS IV Fluids bolus 0, then 999 mL/hr, administered: 07/22/2016 4:29:00 PM Toradol [IVP] IVP 30 mg, administered: 07/22/2016 4:35:00 PM Decadron [IVP] IVP 8 mg, administered: 07/22/2016 6:29:00 PM Flagyl [IVPB] IVPB bolus 0, then 500 mg 100 mL/hr, administered: 07/22/2016 6:29:00 PM The following Medications were prescribed to the patient: Zofran 4 mg: Take 1 orally every six hours as needed for nausea/vomiting. Dispense ten (10). No refills. Substitution is permissible. -- Avril Fay A.R.N.P. Flagyl 500 mg: Take 1 tablet orally every 12 hours for 7 days. No refill. Substitution is permissible. -- Avril Fay A.R.N.P. Ultram 50 mg tablets: take 1-2 orally every 6 hours as needed for pain. Dispense twenty (20). No refills. Substitution is permissible. -- Avril Fay A.R.N.P. Prednisone 20 mg: take 3 orally every day for 5 days. Dispense fifteen (15). No refills. -- Avril Fay A.R.N.P.
== END 2016-07-22 19:25 | disposition home or self-care (01) ==
LOC: ED SRH 16:02
DX: K57.32 Diverticulitis of large intestine without perforation or abscess without bleeding (principal); R10.32 Left lower quadrant pain; I10 Essential (primary) hypertension; Z79.899 Other long term (current) drug therapy; F17.219 Nicotine dependence, cigarettes, with unspecified nicotine-induced disorders; Z88.8 Allergy status to other drugs, medicaments and biological substances
CPT/HCPCS: 90004; 90070; 90100; 90469; 91672; 92010; 92235; 92530; 95059

== ENCOUNTER 2016-10-07 01:08 | Emergency (ER) | payer OTHER ==
--- NOTE | 2016-10-07 02:19 | ED NURSING NOTES ---
Clinical Report - Nurses [facility] [place] [address] 10/07/2016 1:09 Patient: RADHA YATES TRIAGE Triage time 01:18. Acuity: LEVEL 4. Chief Complaint: INJURY TO THE RIGHT RING FINGER. 01:22. Alert. SEPSIS SCREEN: Sepsis Screen. Negative (no infection suspected/documented). --01:24 Flavio Larios R.N. 01:18 10/07/16. BP: 156/91. HR: 94. RR: 16. O2 saturation: 95% on room air. Temp: 98.4 F (oral). Pain level now: 04/08. --01:24 Flavio Larios R.N. Weight: 83.9 kg stated. Height/Length: 71 inches Per Patient. BMI: 25.8. --01:21 Flavio Larios R.N. Medications Another bp med. Lisinopril Oral 20 mg, daily. --01:21 Flavio Larios R.N. Medication/allergy information source: the patient. --01:24 Flavio Larios R.N. Allergies No Known Drug Allergy. --01:21 Flavio Larios R.N. History Arrived by private vehicle. Historian: patient. Unaccompanied. Primary physician (Heriberto). This occurred (about 0000). Occurred (Boemadeleine). Mechanism of injury: (Steel splinter in finger). ( Patient reports picking up a large steel pin at work that had a opal on it). 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 PAST MEDICAL HX: Tetanus status: more than 5 years ago. Immunizations: up-to-date. SOCIAL HX: Current every day heavy tobacco smoker- 1 pack per day. Occasional alcohol use. No drug use. No infectious disease exposure. ABUSE ASSESSMENT: No report of abuse. FALL RISK ASSESSMENT: Fall risk assessment completed. No fall risk identified. NUTRITIONAL RISK ASSESSMENT: The nutritional risk assessment revealed no deficiencies. FUNCTIONAL ASSESSMENT: Functional assessment: no impairments noted. LEARNING NEEDS ASSESSMENT: The learning needs assessment revealed no barriers. SKIN INTEGRITY ASSESSMENT: Skin integrity risk assessment completed. No skin integrity risk identified. --:24 Flavio Larios R.N. PROBLEMS: Diverticulitis. Urinary Retention. UTI - Urinary Tract Infection. Hypertension. Hypospadias. --:22 Flavio Larios R.N. ADDITIONAL SURGERIES: For 2 blockages in urinary tract. --:22 Flavio Larios R.N. Interventions ID band on patient. To treatment room. --:24 Flavio Larios R.N. PHYSICAL ASSESSMENT 01:24. Ambulatory to room. GENERAL / NEURO / PSYCH: Oriented X 4. Alert. Appears in no acute distress. EXTREMITIES: Extremity pulses are within normal limits. Neuro-vascular status intact to the extremity. Right ring finger: (metal splinter protruding from finger). SKIN: Skin is warm and dry. --01:24 Flavio Larios R.N. NURSING PROGRESS NOTES 01:25. Two patient identifiers checked. Call light placed in reach. Bed placed in lowest position. Brakes of bed on. Patient ready for evaluation- chart flagged. --01:25 Flavio Larios R.N. 01:27 10/07/2016 ULJMORE-[id number]-OOTVZ PERTUSSIS IM 0.5 mL given. (Lot#: [id number], expiration date: 09/02/2018, Rocket Engine Component Mechanic: sanofi pasteur). Given in the left deltoid. Allergies verified and confirmed 5 rights. Vaccine information statement provided to the patient. --01:34 Flavio Larios R.N. 01:30 10/07/2016 Lidocaine Injection 2 % given. (At bedside). --01:35 Flavio Larios R.N. 01:29. Patient walked to radiology with tech. --01:35 Flavio Larios R.N. 02:[address] Carranza. --02:14 Flavio Larios R.N. 02:11. Applied dressing consisting of Band-Aid, following the application of antibiotic ointment (bacitracin). --02:15 Flavio Larios R.N. DISPOSITION / DISCHARGE Condition at departure: improved and stable. No learning barriers present. Discharge instructions provided and reviewed with the patient. Patient verbalized understanding. Written instructions provided in [place]. The patient was discharged home. He left the Emergency Department ambulatory and via private vehicle. ( pt given back 'return to work' forms, copies made and posted to pt chart.). --02:33 Rosa Simmons R.N. 02:25 10/07/16. BP: 136/80. HR: 76. RR: 15. O2 saturation: 96% on room air. Temp: deferred. Sanchez-Robles pain scale: 0/10. --02:33 Rosa Simmons R.N. Locked/Released at 10/07/2016 2:33 by Rosa Simmons R.N.
--- NOTE | 2016-10-07 02:19 | ED ORDER SUMMARY ---
..... Patient: RADHA YATES OrderSheet [facility] VisitID: [id number] [place] [address] 61y, M Registration Date/Time: 10/07/2016 ORDER SHEET Weight: 83.9 kg (stated) Allergies: No Known Drug Allergy GENERAL ORDERS: Finger Right (ring) Urgent (:10/07/2016 Fanny Pinto) (Ack 1:31 Lynda) (1:39 Geronimo) MEDICATION ORDERS: Lidocaine Injection 2 % (soln) (place at bedside) (10/07/2016 Fanny Pinto) (Ack 1:25 JQuivey R.N.) (1:35 JQuivey R.N.) Beetjum-Zsubtg-Uneyl Pertussis IM 0.5 mL (NOW, per protocol) (:10/07/2016 Fanny Pinto) (Ack 1:25 JQuivey R.N.) (1:34 JQuivey R.N.) IV FLUIDS: ORDER SHEET NOTES: [Electronically signed by Cresencio Carranza Dr. (:10/07/2016)] [Electronically signed by Rosa Simmons R.N. (10/07/2016)] [Electronically locked/signed by Rosa Simmons R.N. (10/07/2016)]
--- NOTE | 2016-10-07 02:19 | ED ORDER SUMMARY ---
..... Patient: RADHA YATES OrderSheet [facility] VisitID: [id number] [place] [address] 61y, M Registration Date/Time: 10/07/2016 ORDER SHEET Weight: 83.9 kg (stated) Allergies: No Known Drug Allergy GENERAL ORDERS: Finger Right (ring) Urgent (:10/07/2016 Fanny Pinto) (Ack 1:31 Lynda) (1:39 Geronimo) MEDICATION ORDERS: Lidocaine Injection 2 % (soln) (place at bedside) (10/07/2016 Fanny Pinto) (Ack 1:25 JQuivey R.N.) (1:35 JQuivey R.N.) Fhcsggt-Zezwbx-Elizw Pertussis IM 0.5 mL (NOW, per protocol) (:10/07/2016 Fanny Pinto) (Ack 1:25 JQuivey R.N.) (1:34 JQuivey R.N.) IV FLUIDS: ORDER SHEET NOTES: [Electronically signed by Cresencio Carranza Dr. (:10/07/2016)] [Electronically signed by Rosa Simmons R.N. (10/07/2016)] [Electronically locked/signed by Rosa Simmons R.N. (10/07/2016)]
--- NOTE | 2016-10-07 02:19 | ED NURSING NOTES ---
Clinical Report - Nurses [facility] [place] [address] 10/07/2016 1:09 Patient: RADHA YATES TRIAGE Triage time 01:18. Acuity: LEVEL 4. Chief Complaint: INJURY TO THE RIGHT RING FINGER. 01:22. Alert. SEPSIS SCREEN: Sepsis Screen. Negative (no infection suspected/documented). --01:24 Flavio Larios R.N. 01:18 10/07/16. BP: 156/91. HR: 94. RR: 16. O2 saturation: 95% on room air. Temp: 98.4 F (oral). Pain level now: 04/08. --01:24 Flavio Larios R.N. Weight: 83.9 kg stated. Height/Length: 71 inches Per Patient. BMI: 25.8. --01:21 Flavio Larios R.N. Medications Another bp med. Lisinopril Oral 20 mg, daily. --01:21 Flavio Larios R.N. Medication/allergy information source: the patient. --01:24 Flavio Larios R.N. Allergies No Known Drug Allergy. --01:21 Flavio Larios R.N. History Arrived by private vehicle. Historian: patient. Unaccompanied. Primary physician (Heriberto). This occurred (about 0000). Occurred (Boemadeleine). Mechanism of injury: (Steel splinter in finger). ( Patient reports picking up a large steel pin at work that had a opal on it). 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 PAST MEDICAL HX: Tetanus status: more than 5 years ago. Immunizations: up-to-date. SOCIAL HX: Current every day heavy tobacco smoker- 1 pack per day. Occasional alcohol use. No drug use. No infectious disease exposure. ABUSE ASSESSMENT: No report of abuse. FALL RISK ASSESSMENT: Fall risk assessment completed. No fall risk identified. NUTRITIONAL RISK ASSESSMENT: The nutritional risk assessment revealed no deficiencies. FUNCTIONAL ASSESSMENT: Functional assessment: no impairments noted. LEARNING NEEDS ASSESSMENT: The learning needs assessment revealed no barriers. SKIN INTEGRITY ASSESSMENT: Skin integrity risk assessment completed. No skin integrity risk identified. --:24 Flavio Larios R.N. PROBLEMS: Diverticulitis. Urinary Retention. UTI - Urinary Tract Infection. Hypertension. Hypospadias. --:22 Flavio Larios R.N. ADDITIONAL SURGERIES: For 2 blockages in urinary tract. --:22 Flavio Larios R.N. Interventions ID band on patient. To treatment room. --:24 Flavio Larios R.N. PHYSICAL ASSESSMENT 01:24. Ambulatory to room. GENERAL / NEURO / PSYCH: Oriented X 4. Alert. Appears in no acute distress. EXTREMITIES: Extremity pulses are within normal limits. Neuro-vascular status intact to the extremity. Right ring finger: (metal splinter protruding from finger). SKIN: Skin is warm and dry. --01:24 Flavio Larios R.N. NURSING PROGRESS NOTES 01:25. Two patient identifiers checked. Call light placed in reach. Bed placed in lowest position. Brakes of bed on. Patient ready for evaluation- chart flagged. --01:25 Flavio Larios R.N. 01:27 10/07/2016 TFWILAZ-VCGKPD-LEPTM PERTUSSIS IM 0.5 mL given. (Lot#: [id number], expiration date: 09/02/2018, Collar Worker: sanofi pasteur). Given in the left deltoid. Allergies verified and confirmed 5 rights. Vaccine information statement provided to the patient. --01:34 Flavio Larios R.N. 01:30 10/07/2016 Lidocaine Injection 2 % given. (At bedside). --01:35 Flavio Larios R.N. 01:29. Patient walked to radiology with tech. --01:35 Flavio Larios R.N. 02:[address] Carranza. --02:14 Flavio Larios R.N. 02:11. Applied dressing consisting of Band-Aid, following the application of antibiotic ointment (bacitracin). --02:15 Flavio Larios R.N. DISPOSITION / DISCHARGE Condition at departure: improved and stable. No learning barriers present. Discharge instructions provided and reviewed with the patient. Patient verbalized understanding. Written instructions provided in [place]. The patient was discharged home. He left the Emergency Department ambulatory and via private vehicle. ( pt given back 'return to work' forms, copies made and posted to pt chart.). --02:33 Rosa Simmons R.N. 02:25 10/07/16. BP: 136/80. HR: 76. RR: 15. O2 saturation: 96% on room air. Temp: deferred. Sanchez-Robles pain scale: 0/10. --02:33 Rosa Simmons R.N. Locked/Released at 10/07/2016 2:33 by Rosa Simmons R.N.
--- NOTE | 2016-10-07 02:23 | ED CLINICAL REPORT ---
Clinical Report - Physicians/Mid Levels [facility] [address] [address] 10/07/2016 1:09 Patient: RADHA YATES Time Seen: 0119; initial patient contact. Arrived- By private vehicle. HISTORY OF PRESENT ILLNESS Chief Complaint: Injury to the right ring finger. The injury happened today. Occurred at work. The patient sustained a puncture wound from a sharp object. Patient is experiencing moderate pain. Patient denies injury to the head or neck. No other injury. REVIEW OF SYSTEMS Foreign body is suspected. No swelling, tingling, numbness or weakness. All systems otherwise negative, except as recorded above. PAST HISTORY See nurses notes. Tetanus immunization status is unknown. Medications: Another bp med. Lisinopril Oral 20 mg, daily. Allergies: No Known Drug Allergy. SOCIAL HISTORY Smoker- current status unknown. Occasional alcohol use. No drug use. No recent travel. Is a local resident. ADDITIONAL NOTES The nursing notes have been reviewed. PHYSICAL EXAM Vital Signs: 10/07/2016 01:18 BP: 156/91. HR: 94. RR: 16. O2 saturation: 95%. Temp: 98.4 F. Pain level now: 1/10. Hypertensive. Oxygen saturation normal. Head: Head atraumatic. ENT: Ears normal. Nose normal. Pharynx normal. Neck: Normal inspection. Neck supple. C-spine non-tender. CVS: Normal heart rate and rhythm. Heart sounds normal. Pulses normal. Respiratory: No respiratory distress. Breath sounds normal. Chest nontender. Abdomen: No visible injury. Soft and nontender. Bowel sounds normal. Extremities: (right ring finger with metalic FB protruding from proximal palmar aspect. no active bleeding. Full AROM with mild discomfort. Neurovasc intact. no signs of infection.). PROGRESS AND PROCEDURES Course of Care: patient with puncture wound to the right ring finger. XR ordered. Patient agreeable to treatment and plan. Patient's XR shows FB superficial. Patient agreeable to procedure of removal. Removed at bedside without complications. Wound irrigated, baci placed, bandaide applied. Continues to be neurovasc intact. Disposition: Discharged. Condition: good. CLINICAL IMPRESSION 10/07/2016 01:18 BP: 156/91. HR: 94. RR: 16. O2 saturation: 95%. Temp: 98.4 F. Pain level now: 04/08. Hypertensive. Oxygen saturation normal. Single superficial puncture wound to the right ring finger; foreign body present (acute). No right fingernail injury. INSTRUCTIONS Warnings: GENERAL WARNINGS: Return or contact your physician immediately if your condition worsens or changes unexpectedly, if not improving as expected, or if other problems arise. Specifically return if pain, vomiting, bleeding, breathing difficulty or fever. Your Current Medications: CONTINUE TAKING THE FOLLOWING MEDICATIONS: Another bp med*. Lisinopril Oral : 20 mg daily. OTC Medications: Acetaminophen (available over the counter): take according to label instructions. Motrin (available over the counter): take according to label instructions. Follow-up: Return to the emergency department as needed. Follow up with your doctor in three days. Reason for referral: recheck today's concerns. Summary of care provided to patient via paper. Screening today revealed the patient's blood pressure to be in the hypertensive range. Blood pressure screening was not performed during this visit because the patient has an active diagnosis of hypertension. The patient should follow up with a primary care provider for blood pressure management. Understanding of the discharge instructions verbalized by patient. (Electronically signed by Cresencio Carranza Dr. 10/07/2016 2:25)
--- NOTE | 2016-10-07 02:23 | ED CLINICAL REPORT ---
Clinical Report - Physicians/Mid Levels [facility] [address] [place] [address] 10/07/2016 1:09 Patient: RADHA YATES Time Seen: 0119; initial patient contact. Arrived- By private vehicle. HISTORY OF PRESENT ILLNESS Chief Complaint: Injury to the right ring finger. The injury happened today. Occurred at work. The patient sustained a puncture wound from a sharp object. Patient is experiencing moderate pain. Patient denies injury to the head or neck. No other injury. REVIEW OF SYSTEMS Foreign body is suspected. No swelling, tingling, numbness or weakness. All systems otherwise negative, except as recorded above. PAST HISTORY See nurses notes. Tetanus immunization status is unknown. Medications: Another bp med. Lisinopril Oral 20 mg, daily. Allergies: No Known Drug Allergy. SOCIAL HISTORY Smoker- current status unknown. Occasional alcohol use. No drug use. No recent travel. Is a local resident. ADDITIONAL NOTES The nursing notes have been reviewed. PHYSICAL EXAM Vital Signs: 10/07/2016 01:18 BP: 156/91. HR: 94. RR: 16. O2 saturation: 95%. Temp: 98.4 F. Pain level now: 1/10. Hypertensive. Oxygen saturation normal. Head: Head atraumatic. ENT: Ears normal. Nose normal. Pharynx normal. Neck: Normal inspection. Neck supple. C-spine non-tender. CVS: Normal heart rate and rhythm. Heart sounds normal. Pulses normal. Respiratory: No respiratory distress. Breath sounds normal. Chest nontender. Abdomen: No visible injury. Soft and nontender. Bowel sounds normal. Extremities: (right ring finger with metalic FB protruding from proximal palmar aspect. no active bleeding. Full AROM with mild discomfort. Neurovasc intact. no signs of infection.). PROGRESS AND PROCEDURES Course of Care: patient with puncture wound to the right ring finger. XR ordered. Patient agreeable to treatment and plan. Patient's XR shows FB superficial. Patient agreeable to procedure of removal. Removed at bedside without complications. Wound irrigated, baci placed, bandaide applied. Continues to be neurovasc intact. Disposition: Discharged. Condition: good. CLINICAL IMPRESSION 10/07/2016 01:18 BP: 156/91. HR: 94. RR: 16. O2 saturation: 95%. Temp: 98.4 F. Pain level now: 04/08. Hypertensive. Oxygen saturation normal. Single superficial puncture wound to the right ring finger; foreign body present (acute). No right fingernail injury. INSTRUCTIONS Warnings: GENERAL WARNINGS: Return or contact your physician immediately if your condition worsens or changes unexpectedly, if not improving as expected, or if other problems arise. Specifically return if pain, vomiting, bleeding, breathing difficulty or fever. Your Current Medications: CONTINUE TAKING THE FOLLOWING MEDICATIONS: Another bp med*. Lisinopril Oral : 20 mg daily. OTC Medications: Acetaminophen (available over the counter): take according to label instructions. Motrin (available over the counter): take according to label instructions. Follow-up: Return to the emergency department as needed. Follow up with your doctor in three days. Reason for referral: recheck today's concerns. Summary of care provided to patient via paper. Screening today revealed the patient's blood pressure to be in the hypertensive range. Blood pressure screening was not performed during this visit because the patient has an active diagnosis of hypertension. The patient should follow up with a primary care provider for blood pressure management. Understanding of the discharge instructions verbalized by patient. (Electronically signed by Cresencio Carranza Dr. 10/07/2016 2:25)
--- NOTE | 2016-10-07 02:34 | ED DISCHARGE INSTRUCTIONS ---
Patient: RADHA YATES General Instructions [facility] VisitID: [id number] [place] [address] 61y, M Registration Date/Time: 10/07/2016 10/07/2016 01:18 BP: 156/91. HR: 94. RR: 16. O2 saturation: 95%. Temp: 98.4 F. Pain level now: 04/08. Hypertensive. Oxygen saturation normal. Single superficial puncture wound to the right ring finger; foreign body present (acute). No right fingernail injury. INSTRUCTIONS Warnings: GENERAL WARNINGS: Return or contact your physician immediately if your condition worsens or changes unexpectedly, if not improving as expected, or if other problems arise. Specifically return if pain, vomiting, bleeding, breathing difficulty or fever. Your Current Medications: CONTINUE TAKING THE FOLLOWING MEDICATIONS: Another bp med*. Lisinopril Oral : 20 mg daily. OTC Medications: Acetaminophen (available over the counter): take according to label instructions. Motrin (available over the counter): take according to label instructions. Follow-up: Return to the emergency department as needed. Follow up with your doctor in three days. Reason for referral: recheck today's concerns. Summary of care provided to patient via paper. Screening today revealed the patient's blood pressure to be in the hypertensive range. Blood pressure screening was not performed during this visit because the patient has an active diagnosis of hypertension. The patient should follow up with a primary care provider for blood pressure management. Understanding of the discharge instructions verbalized by patient. ADDITIONAL INFORMATION Puncture Wound (General) A puncture wound is a hole through the skin. Bacteria, dirt and debris can be drawn into this wound, increasing the risk of infection. However, antibiotics are usually not prescribed for this injury unless signs of infection are already present. Therefore, it is important to observe the wound closely for the signs of infection listed below. Home Care: If your wound is on an arm, hand, leg, or foot, keep that part raised during the first 48 hours to reduce swelling and pain. Keep the wound clean and dry. If a bandage was applied and it becomes wet or dirty, replace it. Otherwise, leave it in place for the next 24 hours. You may use acetaminophen (Tylenol) or ibuprofen (Motrin, Advil) to control pain, unless another medicine was prescribed. [NOTE: If you have chronic liver or kidney disease or ever had a stomach ulcer or GI bleeding, talk with your doctor before using these medicines.] You may shower as usual. However, do not soak the area in water (no baths or swimming) during the first 48 hours. Follow Up: Most puncture wounds heal within 10 days. However, an infection may sometimes occur despite proper treatment. If small particles were drawn into the puncture wound (such as fragments of cloth, rubber, wood or dirt), an infection may occur. These fragments are very hard to find during the first exam since it is not possible to get a good look inside a puncture wound and they do not show on an X-ray. Antibiotics and a minor surgical procedure to find and remove the foreign object will be needed if this happens. Therefore, check the wound daily for the warning signs listed below. Get Prompt Medical Attention if any of the following occur: SIGNS OF INFECTION: Increasing pain in the wound Redness, swelling, pus or red lines coming from the wound Fever of 100.4F (38C) or higher, or as directed by your healthcare provider You have been given the following additional information: Puncture Wound, General (Electronically signed by Cresencio Carranza Dr. 10/07/2016 2:25)
--- NOTE | 2016-10-07 02:34 | ED MED RECONCILIATION SUMMARY ---
Patient: RADHA YATES Medication Reconciliation Report [facility] VisitID: [id number] [address] [place] [address] 61y, M Registration Date/Time: 10/07/2016 Weight: 83.9 kg Height/Length: 71 in. BMI: 25.8 ALLERGIES: No Known Drug Allergy The patient's Home Medications are listed below: CONTINUE TAKING THE FOLLOWING MEDICATIONS: Another bp med Lisinopril Oral 20 mg, daily The source(s) of the original Home Medication information: patient The following Medications were given to the patient in the Emergency Department: [id number]-[id number]-WINVE PERTUSSIS [IM] IM 0.5 mL, administered: 10/07/2016 1:27:00 AM Lidocaine [Injection] Injection 2 %, administered: 10/07/2016 1:30:00 AM The following Medications were prescribed to the patient: Acetaminophen (available over the counter): take according to label instructions. -- Cresencio Carranza Dr. Motrin (available over the counter): take according to label instructions. -- Cresencio Carranza Dr.
--- NOTE | 2016-10-07 02:34 | ED MAR SUMMARY ---
..... Medication Administration Record [facility] [address] [place] [address] Patient: RADHA YATES Visit ID: [id number] 61y, M Weight: 83.9 kg Height/Length: 71 in BMI: 25.8 ALLERGIES: No Known Drug Allergy Given 01:27 10/07/2016 Flavio Larios, R.N. Medication Administered: [id number] PERTUSSIS [IM], Dose: 0.5 mL IM. Medication Ordered: [id number]-Tthgvp-Cwfmb Pertussis IM 0.5 mL (NOW, per protocol). Given 01:30 10/07/2016 Flavio Larios, R.N. Medication Administered: LIDOCAINE [INJECTION], Dose: 2 % Injection. Medication Ordered: Lidocaine Injection 2 % (soln) (place at bedside).
--- NOTE | 2016-10-07 02:34 | ED MAR SUMMARY ---
..... Medication Administration Record [facility] [address] [place] [address] Patient: RADHA YATES Visit ID: [id number] 61y, M Weight: 83.9 kg Height/Length: 71 in BMI: 25.8 ALLERGIES: No Known Drug Allergy Given 01:27 10/07/2016 Flavio Larios, R.N. Medication Administered: [id number] PERTUSSIS [IM], Dose: 0.5 mL IM. Medication Ordered: Tjmqpjs-Xdocdq-Trrea Pertussis IM 0.5 mL (NOW, per protocol). Given 01:30 10/07/2016 Flavio Larios, R.N. Medication Administered: LIDOCAINE [INJECTION], Dose: 2 % Injection. Medication Ordered: Lidocaine Injection 2 % (soln) (place at bedside).
--- NOTE | 2016-10-07 02:34 | ED MED RECONCILIATION SUMMARY ---
Patient: RADHA YATES Medication Reconciliation Report [facility] VisitID: [id number] [address] [place] [address] 61y, M Registration Date/Time: 10/07/2016 Weight: 83.9 kg Height/Length: 71 in. BMI: 25.8 ALLERGIES: No Known Drug Allergy The patient's Home Medications are listed below: CONTINUE TAKING THE FOLLOWING MEDICATIONS: Another bp med Lisinopril Oral 20 mg, daily The source(s) of the original Home Medication information: patient The following Medications were given to the patient in the Emergency Department: [id number] PERTUSSIS [IM] IM 0.5 mL, administered: 10/07/2016 1:27:00 AM Lidocaine [Injection] Injection 2 %, administered: 10/07/2016 1:30:00 AM The following Medications were prescribed to the patient: Acetaminophen (available over the counter): take according to label instructions. -- Cresencio Carranza Dr. Motrin (available over the counter): take according to label instructions. -- Cresencio Carranza Dr.
--- NOTE | 2016-10-07 06:39 | DIAGNOSTIC IMAGING REPORT ---
PROCEDURE: XR FINGER - RIGHT (fourth finger). INDICATION: FOREIGN BODY TECHNIQUE: Three views. COMPARISON: None. FINDINGS: There is a 3 mm metal foreign body in the volar/radial soft tissues of the right fourth finger (at the distal aspect of the fourth proximal phalanx) . Osseous structures and joint spaces are normal. IMPRESSION: 1. There is a 3 mm metal foreign body in the soft tissues of the proximal right fourth finger.
== END 2016-10-07 02:26 | disposition home or self-care (01) ==
LOC: ED SRH 01:08
DX: S61.244A Puncture wound with foreign body of right ring finger without damage to nail, initial encounter (principal); W26.8XXA Contact with other sharp object(s), not elsewhere classified, initial encounter; Y93.89 Activity, other specified; Y92.89 Other specified places as the place of occurrence of the external cause; Y99.0 Civilian activity done for income or pay; I10 Essential (primary) hypertension; Z23 Encounter for immunization; Z79.899 Other long term (current) drug therapy